=== PATIENT | female | born 1975 | race African-American/Black ===

== ENCOUNTER 2024-06-08 19:17 | Emergency (ER) | payer MEDICAID ==
[~2024-06-08] VITALS: Ht 162.6 cm; Wt 83.9 kg
[2024-06-08] MEDS ORDERED: TRAZ-251 PO (20:53)
[2024-06-08] MEDS ORDERED: HYDR-3686 PO (20:53)
[2024-06-08] MEDS ORDERED: FLUO60TA PO (20:53)
[2024-06-08] MEDS ORDERED: CEPH-585 PO (20:53)
[2024-06-08] MEDS: CefTRIAXone 1000mg IM Kit (w/lidocaine diluent) IM ONE (20:57)
[2024-06-08 21:03] VITALS: BP 190/94; PULSE 85; RESP 17; TEMP 97.2; O2SAT 98
== END 2024-06-08 21:04 | disposition home or self-care (01) ==
LOC: ER 19:18
DX: T24.211A Burn of second degree of right thigh, initial encounter (principal); L08.9 Local infection of the skin and subcutaneous tissue, unspecified; Z76.0 Encounter for issue of repeat prescription; Z88.6 Allergy status to analgesic agent; Y92.89 Other specified places as the place of occurrence of the external cause
CPT/HCPCS: 96372; 99283; J0696; A6258; A6449